=== PATIENT | female | born 1990 | race Two or more races ===

== ENCOUNTER 2025-06-09 11:35 | Outpatient (CLI) | payer OTHER | END 2025-06-09 11:44 | disposition home or self-care (01) | LOC: PRENATAL 11:35 | PROVIDERS: ATTEND Obstetrics & Gynecology Maternal & Fetal Medicine | DX: O36.80X0 Pregnancy with inconclusive fetal viability, not applicable or unspecified (principal); Z36.82 Encounter for antenatal screening for nuchal translucency; Z14.8 Genetic carrier of other disease; O09.519 Supervision of elderly primigravida, unspecified trimester; Z3A.13 13 weeks gestation of pregnancy ==

== ENCOUNTER 2025-07-31 08:00 | Outpatient (CLI) | payer OTHER | END 2025-07-31 08:06 | disposition home or self-care (01) | LOC: PRENATAL 08:00 | PROVIDERS: ATTEND Obstetrics & Gynecology Maternal & Fetal Medicine | DX: O44.00 Complete placenta previa NOS or without hemorrhage, unspecified trimester (principal); O09.519 Supervision of elderly primigravida, unspecified trimester; Z3A.20 20 weeks gestation of pregnancy ==

== ENCOUNTER → 2025-11-06 10:29 | Outpatient (CLI) | payer OTHER | END | disposition home or self-care (01) | LOC: PRENATAL 10:29 | PROVIDERS: ATTEND Obstetrics & Gynecology Maternal & Fetal Medicine | DX: O26.843 Uterine size-date discrepancy, third trimester (principal); O36.8130 Decreased fetal movements, third trimester, not applicable or unspecified; O09.513 Supervision of elderly primigravida, third trimester; O99.013 Anemia complicating pregnancy, third trimester; Z3A.34 34 weeks gestation of pregnancy ==